=== PATIENT | female | born 1960 | race Caucasian/White ===

== ENCOUNTER 2025-01-23 17:01 | Inpatient (IN) | payer MEDICARE, OTHER ==
[~2025-01-23] VITALS: Ht 160 cm; Wt 65.8 kg
[2025-01-23] MEDS: IV NS 0.9% 1,000 ML BAG IV ONE ×2 (17:36→18:45)
[2025-01-23 17:39] LABS: PLATELET COUNT (AUTO) 296 K/uL (150-450); RED BLOOD CELL COUNT(AUTO) 3.98 MIL/uL (4.0-5.2); RED CELL DISTRIBUTION WIDTH 14.3 % (11.5-15.0); WHITE BLOOD COUNT (AUTO) 5.4 K/uL (4.3-11.0)
[2025-01-23 17:47] LABS: CALCIUM, SERUM 8.5 mg/dL (8.5-10.1); CREATININE 0.6 mg/dL (0.6-1.3); SODIUM SERUM 129 mmol/L (136-145); UREA NITROGEN, BLOOD 11 mg/dL (7-18)
[2025-01-23 17:53] LABS: SERUM AMMONIA 32 umol/L (11-32)
[2025-01-23 17:54] LABS: ASPARTATE AMINOTRANSFERASE 13 U/L (15-37); TOTAL PROTEIN, SERUM 7.0 g/dL (6.4-8.2)
[2025-01-23 18:18] LABS: APPEARANCE,URINE CLEAR (CLEAR); BLOOD, URINE Negative Ery/uL (NEGATIVE); LEUKOCYTE ESTERASE ,URINE Moderate (NEGATIVE); NITRITE, URINE NEGATIVE (NEGATIVE); UGLUCOSE Negative (NEGATIVE)
[2025-01-23 18:19] LABS: ADD URINE CULTURE YES; SQUAMOUS EPITHELIAL CELL,UR Few /HPF (None Seen)
[2025-01-23] MEDS ORDERED: LOPE2TAB25 PO (18:50)
[2025-01-23] MEDS ORDERED: FLUT16SP16 BNOSTRILS (18:50)
[2025-01-23] MEDS ORDERED: PANT40TA2 PO (18:50)
[2025-01-23] MEDS ORDERED: OLAN5TAB3 PO (18:50)
[2025-01-23] MEDS ORDERED: CYCL5TAB PO (18:50)
[2025-01-23] MEDS ORDERED: ALBU8.5H8 IH (18:50)
[2025-01-23] MEDS ORDERED: AMLO5TAB4 PO (18:50)
[2025-01-23] MEDS ORDERED: PROP10TA10 PO (18:50)
[2025-01-23] MEDS ORDERED: ONDA4SYR IM (18:50)
[2025-01-23] MEDS ORDERED: LORA-259 PO (18:50)
[2025-01-23] MEDS ORDERED: HYDR-4209 PO (18:50)
[2025-01-23] MEDS ORDERED: IBUP-1957 PO (18:50)
[2025-01-23] MEDS ORDERED: ACET-868 PO (18:50)
[2025-01-23] MEDS ORDERED: GABA-536 PO (18:50)
[2025-01-23] MEDS ORDERED: MAG HYDROX/AL HYDROX/SIMETH 30 ML UDC PO PRN (20:00)
[2025-01-23] MEDS ORDERED: ZOLPIDEM TARTRATE 5 MG TABLET PO PRN (20:00)
[2025-01-23] MEDS ORDERED: ONDANSETRON HCL/PF 4 MG/2 ML VIAL IVP PRN (20:00)
[2025-01-23] MEDS ORDERED: Z GUARD REMEDY 4 OZ OINT TP PRN ×2 (20:00→20:45)
[2025-01-23] MEDS ORDERED: IBUPROFEN 600 MG TABLET PO PRN ×2 (20:00→20:45)
[2025-01-23] MEDS ORDERED: NITROFURANTOIN/MONOHYDRATE MACROCRYSTALS 100 MG CAPSULE PO SCH (20:00)
[2025-01-23] MEDS ORDERED: MAGNESIUM HYDROXIDE 30 ML UDC PO PRN (20:00)
[2025-01-23] MEDS ORDERED: LOPERAMIDE HCL (2 MG CAP) 2 MG CAPSULE PO PRN (20:30)
[2025-01-23] MEDS ORDERED: ALBUTEROL FS 2.5 MG/0.5 ML VIAL.NEB NEB PRN (20:30)
[2025-01-23] MEDS ORDERED: LORAZEPAM 1 MG TABLET PO PRN ×2 (20:30→20:45)
[2025-01-23] MEDS ORDERED: FLUTICASONE PROPIONATE 16 GM BOTTLE NS PRN ×2 (20:30→20:45)
[2025-01-23] MEDS ORDERED: CYCLOBENZAPRINE 10 MG TABLET PO PRN (20:30)
[2025-01-23] MEDS: HYDROCODONE/APAP 5/325MG TABLET PO PRN (22:06)
[2025-01-23] MEDS ORDERED: NITROFURANTOIN/MONOHYDRATE MACROCRYSTALS 100 MG CAPSULE ONE (22:23)
[2025-01-23] MEDS: NITROFURANTOIN/MONOHYDRATE MACROCRYSTALS 100 MG CAPSULE PO SCH (22:27)
[2025-01-23] MEDS: ENOXAPARIN SODIUM 40 MG/0.4 ML DISP.SYRIN SQ SCH (22:29)
[2025-01-24] VITALS: BP 113/70; TEMP 97.5; O2SAT 96
[2025-01-24 04:00] VITALS: BP 128/67; TEMP 96.8; O2SAT 92
[2025-01-24] MEDS: PANTOPRAZOLE 40 MG TABLET.DR PO SCH (07:34)
[2025-01-24] MEDS: IV NS 0.9% 1,000 ML IV PRN (07:44)
[2025-01-24 08:00] VITALS: BP 127/83; TEMP 97.9; O2SAT 96
[2025-01-24] MEDS: GABAPENTIN 400 MG CAPSULE PO SCH (08:37)
[2025-01-24] MEDS: OLANZAPINE 5 MG TABLET PO SCH (08:37)
[2025-01-24] MEDS: PROPRANOLOL HCL 10 MG TABLET PO SCH (08:38)
[2025-01-24] MEDS: AMLODIPINE BESYLATE 5 MG TABLET PO SCH (08:38)
[2025-01-24] MEDS: NITROFURANTOIN/MONOHYDRATE MACROCRYSTALS 100 MG CAPSULE PO SCH (08:55)
[2025-01-24] MEDS ORDERED: OLANZAPINE 5 MG TABLET PO SCH (09:00)
[2025-01-24] MEDS ORDERED: GABAPENTIN 400 MG CAPSULE PO SCH (09:00)
[2025-01-24 12:00] VITALS: BP 109/66; TEMP 98.4; O2SAT 94
[2025-01-24 13:26] LABS: CALCIUM, SERUM 8.8 mg/dL (8.5-10.1); CREATININE 0.8 mg/dL (0.6-1.3); SODIUM SERUM 140.0 mmol/L (136-145); UREA NITROGEN, BLOOD 9.0 mg/dL (7-18)
[2025-01-24 13:59] LABS: PLATELET COUNT (AUTO) 295 K/uL (150-450); RED BLOOD CELL COUNT(AUTO) 4.15 MIL/uL (4.0-5.2); RED CELL DISTRIBUTION WIDTH 14.3 % (11.5-15.0); WHITE BLOOD COUNT (AUTO) 3.8 K/uL (4.3-11.0)
[2025-01-24 16:00] VITALS: BP 100/68; TEMP 98.2; O2SAT 94
[2025-01-24 20:00] VITALS: BP 105/55; TEMP 97.5; O2SAT 100
[2025-01-25 04:00] VITALS: BP 138/74; TEMP 97.5; O2SAT 100
[2025-01-25] MEDS: ACETAMINOPHEN 325 MG TABLET PO PRN (06:07)
[2025-01-25 07:09] LABS: CALCIUM, SERUM 8.7 mg/dL (8.5-10.1); CREATININE 0.6 mg/dL (0.6-1.3); PHOSPHORUS 4.5 mg/dL (2.5-4.9); SODIUM SERUM 141.0 mmol/L (136-145); UREA NITROGEN, BLOOD 11.0 mg/dL (7-18)
[2025-01-25 08:00] VITALS: BP 128/72; TEMP 97; O2SAT 94
[2025-01-25 12:00] VITALS: BP 128/72; TEMP 97; O2SAT 94
[2025-01-25 16:00] VITALS: BP 107/68; TEMP 97; O2SAT 94
[2025-01-25 20:00] VITALS: BP 114/78; TEMP 97.7; O2SAT 96
[2025-01-26] VITALS: BP 126/75; TEMP 97.7; O2SAT 95
[2025-01-26 04:00] VITALS: BP 120/77; TEMP 97.7; O2SAT 96
[2025-01-26 08:00] VITALS: BP 140/83; TEMP 97.5; O2SAT 95
[2025-01-26 12:00] VITALS: BP 88/57; TEMP 98.2; O2SAT 92
[2025-01-26 15:36] VITALS: BP 105/70; TEMP 97.7; O2SAT 95
== END 2025-01-26 15:18 | DRG 641 ==
LOC: ER 17:04 → TELE1 21:26 → MEDSG1 01-24 17:00
PROVIDERS: ADMIT Registered Nurse Psychiatric/Mental Health; ATTEND Nurse Practitioner Acute Care
DX: E86.1 Hypovolemia (principal); N39.0 Urinary tract infection, site not specified; E87.1 Hypo-osmolality and hyponatremia; E86.0 Dehydration; F39 Unspecified mood [affective] disorder; F41.9 Anxiety disorder, unspecified; K44.9 Diaphragmatic hernia without obstruction or gangrene; K21.9 Gastro-esophageal reflux disease without esophagitis; R62.7 Adult failure to thrive; Z68.25 Body mass index [BMI] 25.0-25.9, adult; R53.1 Weakness; J44.9 Chronic obstructive pulmonary disease, unspecified; F17.210 Nicotine dependence, cigarettes, uncomplicated; G20.A1 Parkinson's disease without dyskinesia, without mention of fluctuations; B96.1 Klebsiella pneumoniae [K. pneumoniae] as the cause of diseases classified elsewhere; F25.9 Schizoaffective disorder, unspecified; I11.9 Hypertensive heart disease without heart failure
CPT/HCPCS: 36415; 71045-TC; 80048-TC; 80076-TC; 81001; 82140-TC; 82533; 83690-TC; 83735-TC; 83935-TC; 84100-TC; 84300-TC; 84443-TC; 84484-TC; 84550-TC; 85025-TC; 87086-TC; 87186-TC; A4223; G0378; J1650; J7030